=== PATIENT | female | born 1970 | race African-American/Black ===

== ENCOUNTER 2018-11-23 10:19 | Inpatient (IN) | payer OTHER ==
[2018-11-22 10:21] VITALS: BMI 18.7
[2018-11-23] MEDS ORDERED: MIDAZOLAM HCL 2 MG/2 ML SINGLE DOSE VIAL ONE (10:27)
[2018-11-23] MEDS ORDERED: ROCURONIUM BROMIDE 50 MG/5 ML VIAL ONE (10:27)
[2018-11-23] MEDS ORDERED: LIDOCAINE HCL/PF 2% SDV 5ML VIAL ONE (10:27)
[2018-11-23] MEDS ORDERED: PROPOFOL 20 ML ONE ×3 (10:27→13:01)
[2018-11-23] MEDS ORDERED: HEPARIN NA (PORCINE) 5,000 UNITS/ML 1ML VIAL ONE (10:49)
[2018-11-23] MEDS ORDERED: ceFAZolin SODIUM 1 GM VIAL ONE (11:43)
[2018-11-23] MEDS ORDERED: SODIUM CHLORIDE 0.9% P/F 10 ML VIAL IJ ONE (11:43)
[2018-11-23] MEDS ORDERED: ceFAZolin SODIUM 1 GM VIAL IVPB ONE (11:45)
[2018-11-23] MEDS ORDERED: DEXAMETHASONE SOD PHOSPHATE 4 MG/1 ML VIAL ONE ×2 (11:54→13:47)
[2018-11-23] MEDS ORDERED: ONDANSETRON 4 MG/2 ML VIAL ONE ×2 (11:54→13:47)
[2018-11-23] MEDS ORDERED: ACETAMINOPHEN INJECTION 100 ML IVPB ONE (12:36)
[2018-11-23] MEDS ORDERED: NEOSTIGMINE METHYLSULFATE 0.5 MG/1 ML - 10 ML MDV ONE (13:27)
[2018-11-23] MEDS ORDERED: GLYCOPYRROLATE 0.2 MG/1 ML VIAL ONE ×2 (13:27→13:29)
[2018-11-23] MEDS ORDERED: BUPIVACAINE HCL/PF 0.75% 10 ML VIAL ONE (13:33)
[2018-11-23] MEDS ORDERED: BUPIVACAINE HCL/PF 0.75% 10 ML VIAL NR ONE (13:40)
--- NOTE | 2018-11-23 14:02 | OP ---
Operative Note - Note: Operative Date: 11/23/18 Pre-Operative Diagnosis: Large leiomymata. Pelvic pain. Rt. ovarian cyst. Operation: Abdominal myomectomies x 3. Resection of rt. ovarian cyst. Post-Operative Diagnosis: Same as Pre-op Surgeon: Stefan Stephens Anesthesiologist/ELECTROPLATER APPRENTICE: Donis Rosenthal Anesthesia: General, Local Estimated Blood Loss (mls): 350 (125 cc returned via cellsaver)
[2018-11-23] MEDS ORDERED: ONDANSETRON 4 MG/2 ML VIAL IVPUSH PRN ×2 (14:07→14:08)
[2018-11-23] MEDS ORDERED: PROMETHAZINE HCL 25 MG/1 ML VIAL IVPB PRN (14:07)
[2018-11-23] MEDS ORDERED: oxyCODONE HCL 5 MG TABLET PO PRN ×2 (14:07→14:08)
[2018-11-23] MEDS ORDERED: BISACODYL 5 MG TABLET.DR (FP) PO PRN (14:08)
[2018-11-23] MEDS ORDERED: DOCUSATE SODIUM 100 MG CAPSULE (FP) PO PRN (14:08)
--- NOTE | 2018-11-23 14:15 | SURG ---
Surgery Head Irrigator Note Head Irrigator: Adrian Escalante PA-C Date of Service: 11/23/18 Diagnosis: Large leiomymata. Pelvic pain. Rt. ovarian cyst. Procedure: Abdominal myomectomies x 3. Resection of rt. ovarian cyst. I was present for the entirety of the operative procedure. For further detail, please refer to operative report. Visit type - Case Type Case Type: Scheduled - Emergency Emergency Visit: No - New patient This patient is new to me today: Yes Date on this admission: 11/23/18
[2018-11-23] MEDS: LACTATED RINGERS SOLUTION 1,000 ML IV SCH (15:25)
[2018-11-23] MEDS: ACETAMINOPHEN 1000 MG/100 ML VIAL (NON FORMULARY) IVPB SCH ×2 (15:52→20:30)
[2018-11-23] MEDS: KETOROLAC TROMETHAMINE 30 MG/1 ML VIAL IVPUSH SCH (18:06)
[2018-11-24] MEDS: KETOROLAC TROMETHAMINE 30 MG/1 ML VIAL IVPUSH SCH ×3 (01:13→18:21)
[2018-11-24] MEDS: LACTATED RINGERS SOLUTION 1,000 ML IV SCH (01:15)
[2018-11-24] MEDS: ACETAMINOPHEN 1000 MG/100 ML VIAL (NON FORMULARY) IVPB SCH ×2 (03:00→08:06)
--- NOTE | 2018-11-24 08:42 | PN ---
Progress Note (short form) - Note Progress Note: Anesthesia post op Pt seen and examined S:Alert and awake comfortable O: Vital Signs Temperature 98.3 F 11/24/18 06:00 Pulse Rate 91 H 11/24/18 06:00 Respiratory Rate 18 11/24/18 06:00 Blood Pressure 122/79 11/24/18 06:00 O2 Sat by Pulse Oximetry (%) 100 11/23/18 15:45 A/P: s/p Abdominal myomectomy Doing well post op Continue current care Elliot Hill MD
[2018-11-24 09:46] LABS: HEMATOCRIT 26.4 % (32.4-45.2); MCH 28.6 pg (25.7-33.7); MEAN PLT VOLUME 10.6 fl (7.5-11.1); PLATELET COUNT 162 K/MM3 (134-434); RBC 3.15 M/mm3 (3.60-5.2); RDW 14.5 % (11.6-15.6); WHITE BLOOD COUNT 9.3 K/mm3 (4.0-10.0)
[2018-11-24 10:02] LABS: ANION GAP 8 MMOL/L (8-16); BLOOD UREA NITROGEN 7 mg/dL (7-18); CALCIUM 8.3 mg/dL (8.5-10.1); CHLORIDE 106 mmol/L (98-107); CO2 24 mmol/L (21-32); CREATININE 0.7 mg/dL (0.55-1.3); GLUCOSE,RANDOM 107 mg/dL (74-106); POTASSIUM 3.8 mmol/L (3.5-5.1); SODIUM 138 mmol/L (136-145)
--- NOTE | 2018-11-24 12:45 | PN ---
Progress Note (short form) - Note Progress Note: POD 1. Afebrile. Feels great. OOB. PE excellent. Abd. soft, nontender. BS pos. No CVA T. No vag bleeding. Extremities WNL. Imp./Plan: Good recovery. Anticipating discharge tomorrow. All fully discussed.
[2018-11-24] MEDS: oxyCODONE HCL 5 MG TABLET PO PRN ×2 (16:16→22:52)
[2018-11-24] MEDS: SIMETHICONE 80 MG TAB.CHEW (FP) PO PRN (22:52)
[2018-11-25] MEDS ORDERED: IBUPROFEN 600 MG TABLET (FP) PO PRN (06:34)
[2018-11-25] MEDS ORDERED: ACETAMINOPHEN 325 MG TABLET (FP) PO PRN (06:34)
[2018-11-25 09:39] VITALS: BP 110/63; PULSE 83; TEMP 98.1
[2018-11-25] MEDS ORDERED: HERBAL SUPPLEMENTS PO SCH (10:00)
[2018-11-25] MEDS: SIMETHICONE 80 MG TAB.CHEW (FP) PO PRN (10:14)
--- NOTE | 2018-11-25 11:07 | CONSULT ---
Consultation: REQUESTING PROVIDER: CONSULT REQUEST: We have been asked to medically evaluate this patient for ( specify). HISTORY OF PRESENT ILLNESS: 48 y/o F who was in [facility] for abdominal myomectomies x 3 and resection of rt. ovarian cyst. She was given motrin and tylenol and she felt some tingling in her face. She reports having an allergy to corn but not to medicine. She has never had an anaphlyactic reaction either. She reports feeling well at this time and tingling has subsided. She reports no excessive salivation, difficulty swallowing or breathing, large tongue feeling, or feeling like she is itchy or her throat is closing. REVIEW OF SYSTEMS: CONSTITUTIONAL: Absent: fever, chills HEENT: Absent: throat pain, throat swelling, difficulty swallowing, mouth swelling CARDIOVASCULAR: Absent: chest pain RESPIRATORY: Absent: shortness of breath,wheezing GASTROINTESTINAL: Absent: abdominal pain NEUROLOGIC: Absent: mental status changes PHYSICAL EXAMINATION Vital Signs - 24 hr 11/24/18 11/24/18 11/25/18 18:00 20:46 09:38 Temperature 98.6 F 98.0 F 98.1 F Pulse Rate 88 82 83 Respiratory 20 20 20 Rate Blood Pressure 120/80 96/66 110/63 GENERAL: Awake, alert, and fully oriented, in no acute distress. HEAD: Normal with no signs of trauma. EYES: extraocular movements intact, sclera anicteric, conjunctiva clear. EARS, NOSE, THROAT: Ears normal, nares patent, oropharynx clear without exudates. Moist mucous membranes. No macroglossia. NECK: Normal range of motion, supple LUNGS: Breath sounds equal, clear to auscultation bilaterally. No wheezes, and no crackles. No accessory muscle use. HEART: Regular rate and rhythm, normal S1 and S2 ABDOMEN: Soft, nontender, not distended, normoactive bowel sounds LOWER EXTREMITIES: warm, well-perfused. . NEUROLOGICAL: Cranial nerves II-XII grossly intact. Normal speech. Gait not observed. PSYCHIATRIC: Cooperative. Good eye contact. Appropriate mood and affect. SKIN: Warm, dry. Active Medications Generic Name Dose Route Start Last Admin Trade Name Freq PRN Reason Stop Dose Admin Acetaminophen 650 mg 11/25/18 06:34 11/25/18 10:12 Tylenol - PO 650 mg Q6H PRN Administration PAIN LEVEL 6-10 Bisacodyl 10 mg 11/23/18 14:08 Dulcolax - PO ONCE PRN CONSTIPATION Docusate Sodium 100 mg 11/23/18 14:08 11/25/18 10:17 Colace - PO 100 mg TID PRN Administration CONSTIPATION Lactated Ringer's 1,000 mls @ 125 mls/hr 11/23/18 14:15 11/24/18 01:15 Lactated Ringers Solution IV 125 mls/hr ASDIR MARY Administration Ibuprofen 600 mg 11/25/18 06:34 11/25/18 10:14 Motrin - PO 600 mg Q6H PRN Administration PAIN LEVEL 1-5 Non-Formulary Medication 50,000 unit 11/25/18 10:00 Ergocalciferol (Vitamin D2) [Vitamin D2] PO DAILY MARY Non-Formulary Medication 1 tab 11/25/18 10:00 Herbal Supplements PO DAILY MARY Ondansetron HCl 4 mg 11/23/18 14:07 11/23/18 16:53 Zofran Injection IVPUSH 4 mg Q6H PRN Administration NAUSEA AND/OR VOMITING Ondansetron HCl 4 mg 11/23/18 14:08 Zofran Injection IVPUSH Q4H PRN NAUSEA AND/OR VOMITING Promethazine HCl 12.5 mg 11/23/18 14:07 Phenergan Injection - IVPB Q6H PRN NAUSEA-FOR RESCUE AFTER 15 MIN Simethicone 80 mg 11/23/18 14:08 11/25/18 10:14 Mylicon - PO 80 mg Q4H PRN Administration GAS ASSESSMENT/PLAN: Dispo: We will continue to follow the patient. Thank you for this consultative opportunity. -Mild reaction to medicine -No lasting issue. Pt had some tingling in face which resolved right after taking it (motrin and tylenol). Pt was advised to carry an epi pen, bendaryl, medrol dose pack in case of severe allergic reactions. She has benadryl at home but epipen and medrol dose pack were prescribed to her pharmacy. She was also told to f/u with her vp analysis. Visit type - Emergency Visit Emergency Visit: Yes ED Registration Date: 11/23/18 Care time: The patient presented to the Emergency Department on the above date and was hospitalized for further evaluation of their emergent condition. - New Patient This patient is new to me today: Yes Date on this admission: 11/25/18 - Critical Care Critical Care patient: No
--- NOTE | 2018-11-25 16:05 | PN ---
Teaching Attending Note Name of Resident: Carlos Greer ATTENDING PHYSICIAN STATEMENT I saw and evaluated the patient. I reviewed the resident's note and discussed the case with the resident. I agree with the resident's findings and plan as documented. SUBJECTIVE: Patient is a 48yo female was given motrin , where she reacted to the pill. 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 She felt alight tingling sensation on her face. but went away. When I asked her what is the worse reaction that she got from the corn syrup stated that her throat gets close to closing up but never did prior. OBJECTIVE: Vital Signs Temperature 98.1 F 11/25/18 09:38 Pulse Rate 83 11/25/18 09:38 Respiratory Rate 20 11/25/18 09:38 Blood Pressure 110/63 11/25/18 09:38 O2 Sat by Pulse Oximetry (%) 100 11/23/18 15:45 GENERAL: Awake, alert, and fully oriented, in no acute distress. HEAD: Normal with no signs of trauma. EYES: Pupils equal, round and reactive to light, extraocular movements intact, sclera anicteric, conjunctiva clear. No lid lag. EARS, NOSE, THROAT: Ears normal, oropharynx clear without exudates. Moist mucous membranes. NECK: Normal range of motion, supple without lymphadenopathy, JVD, or masses. LUNGS: Breath sounds equal, clear to auscultation bilaterally. No wheezes, and no crackles. No accessory muscle use. No stridor HEART: Regular rate and rhythm, normal S1 and S2 without murmur, rub or gallop. ABDOMEN: Soft, nontender, not distended, normoactive bowel sounds, no guarding, no rebound, no masses. No hepatomegaly or splenomegaly. MUSCULOSKELETAL: Normal range of motion at all joints. No bony deformities or tenderness. No CVA tenderness. EXTREMITIES: 2+ pulses, warm, well-perfused. No cyanosis. No clubbing. NEUROLOGICAL: Cranial nerves II-XII intact. Normal speech. Normal gait. PSYCHIATRIC: Cooperative. Good eye contact. Appropriate mood and affect. SKIN: Warm, dry, normal turgor, no rashes or lesions noted. CBCD WBC 9.3 K/mm3 (4.0-10.0) 11/24/18 08:30 RBC 3.15 M/mm3 (3.60-5.2) L 11/24/18 08:30 Hgb 9.0 GM/dL (10.7-15.3) L 11/24/18 08:30 Hct 26.4 % (32.4-45.2) L 11/24/18 08:30 MCV 84.0 fl (80-96) 11/24/18 08:30 MCHC 34.0 g/dl (32.0-36.0) 11/24/18 08:30 RDW 14.5 % (11.6-15.6) 11/24/18 08:30 Plt Count 162 K/MM3 (134-434) 11/24/18 08:30 MPV 10.6 fl (7.5-11.1) 11/24/18 08:30 CMP Sodium 138 mmol/L (136-145) 11/24/18 08:30 Potassium 3.8 mmol/L (3.5-5.1) 11/24/18 08:30 Chloride 106 mmol/L (98-107) 11/24/18 08:30 Carbon Dioxide 24 mmol/L (21-32) 11/24/18 08:30 Anion Gap 8 MMOL/L (8-16) 11/24/18 08:30 BUN 7 mg/dL (7-18) 11/24/18 08:30 Creatinine 0.7 mg/dL (0.55-1.3) 11/24/18 08:30 Creat Clearance w eGFR > 60 (>60) 11/24/18 08:30 Random Glucose 107 mg/dL (74-106) H 11/24/18 08:30 Calcium 8.3 mg/dL (8.5-10.1) L 11/24/18 08:30 Home Medications Medication Instructions Recorded Ergocalciferol (Vitamin D2) 50,000 unit PO DAILY 11/22/18 [Vitamin D2] Herbal Supplements 1 tab PO DAILY 11/23/18 EPINEPHrine (EPI-PEN 0.3MG) 0.3 mg IM ASDIR #2 pens 11/25/18 [Epipen 0.3MG -] Methylprednisolone [Medrol Dose 4 mg PO ASDIR #21 tablet 11/25/18 Tone] ASSESSMENT AND PLAN: # Acute mild reaction which resolved instantly. Given the patient history: will give her Epipen to go home with and Medrol dose pack. Recommended her to carry with her all the time, and see her allergenist for retesting. For possible getting anaphylactic reaction. thank you for the consult.
--- NOTE | 2018-11-26 09:03 | OP ---
DATE OF OPERATION: DATE OF DICTATION: 11/23/2018 PREOPERATIVE DIAGNOSES: 1. Large, growing uterine leiomyomata. Pelvic pain. 2. Right ovarian cyst. OPERATION: 1. Abdominal myomectomy x3. 2. Resection of the right ovarian cyst. 3. Cell Saver use. POSTOPERATIVE DIAGNOSES: 1. Large, growing uterine leiomyomata. Pelvic pain. 2. Right ovarian cyst. SURGEON: Stefan Stephens MD [place] INFORMATION CLERK: KENDRA ANESTHESIA: Donis Rosenthal MD; general. PROCEDURE AND FINDINGS: Under general anesthesia patient was placed in dorsal supine position. Echavarria catheter was inserted. Abdomen was prepped and draped in the normal fashion. Pfannenstiel incision was placed on the skin and carried through the subcutaneous tissue and fascia transversely. Recti muscles were after being dissected off fascia. Peritoneum was opened vertically. Uterus compatible with 18 weeks size was noted and elevated above the incision. There was huge, about 15- to 20-cm myoma that was apparently arising from right lower part of the uterus although that was not immediately identified. Right parametrium with some difficulty stretched with round ligament elevated and stretched across the anterior aspect of the fibroid. A 4-cm right ovarian cyst was noted and looked very suspicious for dermoid. Uterus was noted to be smaller, very inferior in the pelvis and to the right of the whole mass. There was another 2- to 3-cm myoma at the fundal area and small subserous myoma measuring less than 1 cm. During the dissection multiple areas of scar tissue, undoubtedly secondary to necrosis, were noticed. Using Bovie capsule was opened in longitudinal fashion on the superior aspect of the mass. Dissection was sharp using scissor, scalpel and Bovie until proper plane was reached. With great difficulties and with very tedious dissection the whole huge myoma was resected. Care was taken not to injure the right fallopian tube or right round ligament which was preserved. Myoma was resected while hemostasis was being maintained. It was sent for pathology as a specimen. Large area of capsule was then removed deep. The defect extending into the right parametrium was then addressed. It was lavaged and hemostasis was accomplished. Piece of Surgicel was placed inside of the parametrium and multiple areas of chromic 3-0 sutures were applied to approximate the edges and to close the space. The most superior layer was secured with a continuous running PDS 2-0 suture and the last layer was closed in the baseball fashion. The area was decreased in size and was noted completely hemostatic. It was repeatedly checked and remained hemostatic. Fundal myoma was then removed after capsule was excised. This area was closed with 2-layer continuous running PDS suture, the top layer in a baseball fashion. Small subserous myoma was resected as well and the base was closed with mattress suture 3-0 chromic. Area was lavaged and very carefully examined. Hemostasis was excellent. Right ovarian cyst was then addressed. Capsule was incised and it was very thin. Clear fluid was noted and it was not a dermoid. The cyst was excised. The whole sac was removed and small part of the ovarian capsule was resected as well. The area was secured and sealed. Left fallopian tube and left ovary were completely within normal limits. Pelvis was then examined, lavaged, hemostasis was excellent. Count was correct. Fluid was suctioned and 1 sheet of Intercede was then placed on top of the uterus and the suture lines. Peritoneum was closed with continuous running PDS 2-0. Fascia was closed with continuous running Vicryl 1 suture. Subcutaneous tissue was infiltrated with Marcaine and approximated with interrupted 3-0 chromics. Skin was closed with subcuticular continuous running 3-0 Monocryl suture and Steri-Strips. Sterile dressing without tape was applied and held with a binder. Cell Saver was activated at beginning of the surgery. It was used throughout the whole case. Total blood loss was 350 mL and 125 mL were returned from the Cell Saver. Urine output was adequate. Urine was clear in the Echavarria catheter bag. Patient withstood the surgery very well. Stable and comfortable she was transferred to PACU completely awake. MD DORA OBRIEN/[id number]
--- NOTE | 2018-11-29 09:07 | PATH ---
Surgical Pathology Report Patient Name: JANNETH [facility]ENDANO [facility]. Rec. 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 UTERINE MYOMA, EXCISION: LEIOMYOMA WITH FOCAL DEGENERATIVE CHANGE, MULTIPLE, 649 GRAMS. B. RIGHT OVARIAN CYST POLYP OVER CAPSULE, EXCISION: OVARIAN TISSUE WITH BENIGN CYST CONSISTENT WITH SEROUS CYSTADENOMA. Electronically Signed Chalo Cornejo M.D. Gross Description A. Received in formalin labeled "uterine myoma," is a 649 g aggregate of 2 almaraz, rubbery nodules, consistent with fibroids. The fibroids measure 2.3 and 12.5 cm in greatest dimension. Sectioning of the smaller fibroid reveals almaraz, rubbery parenchyma with whorled architecture. Sectioning of the larger fibroid displays foci of degeneration. Also received within the same container is a 7.0 x 5.5 x 0.4 cm aggregate of almaraz lake portions of soft tissue, possibly consistent with serosa. Right Of Way Appraiser sections are submitted in 8 cassettes as follows: 1-smaller fibroids; 2-7-larger fibroid; 3-separately received possible serosa. B. Received in formalin labeled "right ovarian cyst polyp over capsule," is a 3.8 x 2.0 x 1.4 cm almaraz cystic structure, consistent with a portion of ovarian cyst. Right Of Way Appraiser sections are submitted in 2 cassettes. DL/11/27/2018 saudi/11/27/2018
== END 2018-11-25 12:30 | disposition home or self-care (01) | DRG 519 ==
LOC: JSAMEDAYSX 10:19 → EDSTATUS 11:00 → JSAMEDAYSX 15:12 → J3W 15:44
PROVIDERS: ADMIT Specialist; ATTEND Specialist
PROC: 0UB00ZZ Excision of Right Ovary, Open Approach (ICD-10-PCS; 2018-11-23)
PROC: 0UB90ZZ Excision of Uterus, Open Approach (ICD-10-PCS; principal; 2018-11-23 11:30)
DX: D25.2 Subserosal leiomyoma of uterus (principal); N83.201 Unspecified ovarian cyst, right side; R20.2 Paresthesia of skin; T39.315A Adverse effect of propionic acid derivatives, initial encounter; T39.1X5A Adverse effect of 4-Aminophenol derivatives, initial encounter
CPT/HCPCS: 36415; 80048; 84702; 85027; 86850; 86900; 86901; 88305-TC; 88307-TC; 94010; 94760; J0131; J1644